=== PATIENT | female | born 1975 | race Caucasian/White ===

== ENCOUNTER 2016-11-05 19:19 | Emergency (ER) | payer SELFPAY ==
--- NOTE | 2016-11-05 20:44 | ER Document Report ---
HPI - HPI Patient complains to provider of: tightness in chest, SOB, dizzy, cough Onset: Other - monday Onset/Duration: Gradual, Persistent Pain Level: 3 Context: 40-year-old nonsmoking, non-hormone , no recent travel or immobilization, no hx cancer, female complaining of onset Monday morning at 11:00 while watching TV a scratchy and tightness in her chest. She also had a sensation of shortness of breath, sensation of not getting enough air in, and dizziness. 1220 she developed a dry cough. Monday evening at 7 PM she had an episode of diarrhea and the tightness in chest, shortness of breath, dizziness and feeling very antsy recurred. She was unable to sleep very well because she felt like she couldn't breathe. This morning her cough had increased with shortness of breath but no dizziness. At 4:00 when the symptoms persisted she felt like she needed to come to the emergency room due to the shortness of breath. She had several episodes of dizziness in the waiting room. No history of thyroid disorder. She does have anxiety but does not feel panicky or anxious now. Her apical pulse is 112 oxygenation 100% with respiratory rate 16-20. No leg pain, I did consult with Dr. Delgadillo at this time Consult with Dr. Delgadillo at this time and he recommends getting a d-dimer if that is negative we can use that to rule out PE. Pt does state that when she has felt this way in the past she was dx with bronchitis. Associated Symptoms: None Exacerbated by: Other - chest hurts more when she takes a deep breath Relieved by: Denies - ROS ROS below otherwise negative: Yes Systems Reviewed and Negative: Yes All other systems reviewed and negative - REPRODUCTIVE LMP: 4-17 - DERM Skin Color: Normal Past Medical History - General Information source: Patient - Social History Smoking Status: Never Smoker Frequency of alcohol use: None Drug Abuse: None Lives with: Spouse/Significant other Family History: Reviewed & Not Pertinent Patient has suicidal ideation: No Patient has homicidal ideation: No - Medical History Medical History: Negative Renal/ Medical History: Denies: Hx Peritoneal Dialysis Surgical Hx: Negative Vertical Provider Document - CONSTITUTIONAL Agree With Documented VS: Yes - INFECTION CONTROL TRAVEL OUTSIDE OF THE [place] IN LAST 30 DAYS: No - HEENT HEENT: Normal ENT Exam, Normocephalic, PERRLA. negative: Conjuctival Injection , Pharyngeal Erythema, Tympanic Membrane Red - NECK Neck: Supple. negative: Lymphadenopathy-Left, Lymphadenopathy-Right - RESPIRATORY Respiratory: Breath Sounds Normal, No Respiratory Distress O2 Sat by Pulse Oximetry: 100 - CARDIOVASCULAR Cardiovascular: Regular Rate, Regular Rhythm - GI/ABDOMEN Gastrointestinal: Abdomen Soft, Abdomen Non-Tender, No Organomegaly - BACK Back: Normal Inspection - MUSCULOSKELETAL/EXTREMETIES Musculoskeletal/Extremeties: MAEW, FROM, Non-Tender - NEURO Level of Consciousness: Awake, Alert, Appropriate - DERM Integumentary: Warm, Dry, No Rash Course - Re-evaluation Re-evalutation: 11/05/16 21:54 Microcytic anemia noted with tenderness to cytosis per week January cytosis ovalocytes and schistocytes slight target cells and slight teardrop cells. Patient has been anemic in the past but does not take iron at this time. She is chronically fatigued. She does not know how low her hemoglobin has been in the past. 11/05/16 22:08 Chest x-ray shows left upper lobe pneumonia. I consulted with Dilma Urrutia M.D. for treatment and disposition. Today's azithromycin, ferrous sulfate and referral to supervisor [facility] department. lungs clear. l - Vital Signs Vital signs: Temp Pulse Resp BP Pulse Ox 99.4 F 116 H 20 128/72 H 100 11/05/16 19:58 11/05/16 19:58 11/05/16 19:58 11/05/16 19:58 11/05/16 19:58 - Laboratory Result Diagrams: 11/05/16 21:10 11/05/16 21:10 Discharge - Discharge Clinical Impression: Chronic anemia Left upper lobe pneumonia Qualifiers: Pneumonia type: due to unspecified organism Qualified Code(s): J18.1 - Lobar pneumonia, unspecified organism Condition: Good Disposition: HOME, SELF-CARE Instructions: Pneumonia ([facility]), Azithromycin ([facility]), Inhaled Bronchodilators ([facility] ), Anemia ([facility]), Family Physicians / Practices Additional Instructions: see supervisor [facility] department related to your chronic anemia to er if symptoms worsen use the inhlater 2 puffs every 3-4 hours for the cough, use the aerochamber with it take over the counter ferrous sulfate 325mg three times per day stool softner daily referral to family practice doctor for further treatment Please complete the patient satisfaction survey if you get one, and return it.. If you do not receive a survey, then you can go to the [facility] website, [email or web address] and place your comments about your very good care. Thank you very much. It was a pleasure being your medical provider today. Prescriptions: Azithromycin [Zithromax] 250 mg PO DAILY #4 tablet Referrals: SYDNEY PHILLIPS MD [ACTIVE STAFF] - Follow up in 1 week
[2016-11-05] MEDS ORDERED: ALBUTEROL SULFATE 0.083% NEB 2.5 MG/3 ML AMPUL NEB ONE (21:00)
[2016-11-05] MEDS ORDERED: ACETAMINOPHEN 325 MG TABLET PO ONE (21:17)
[2016-11-05 21:20] LABS: ABSOLUTE EOSINOPHILS # (AUTO) 0.1 10^3/uL (0.0-0.6); ABSOLUTE LYMPHOCYTES (AUTO) 0.8 10^3/uL (0.5-4.7); ABSOLUTE MONOCYTES (AUTO) 0.9 10^3/uL (0.1-1.4); ABSOLUTE NEUT (AUTO) 6.1 10^3/uL (1.7-8.2); BASOPHILS % (AUTO) 0.6 % (0-2); EOSINOPHILS % (AUTO) 0.8 % (0-6); HEMATOCRIT 27.5 % (36.0-47.0); HEMOGLOBIN 8.2 g/dL (12.0-15.5); HGB HCT DIFFERENCE -2.9; LYMPHOCYTES % (AUTO) 9.9 % (13-45); MEAN CORPUSCULAR HEMOGLOBIN 17.1 pg (27.0-33.4); MEAN CORPUSCULAR HGB CONC 29.8 g/dL (32.0-36.0); MONOCYTES % (AUTO) 11.8 % (3-13); RED BLOOD COUNT 4.78 10^6/uL (3.72-5.28); RED CELL DISTRIBUTION WIDTH 17.7 % (11.5-14.0); SEGMENTED NEUTROPHILS % (AUTO) 76.9 % (42-78); WHITE BLOOD COUNT 7.9 10^3/uL (4.0-10.5)
[2016-11-05 21:33] LABS: ALANINE AMINOTRANSFERASE 30 U/L (9-52); ALBUMIN 4.3 g/dL (3.5-5.0); ALKALINE PHOSPHATASE 44 U/L (38-126); ANION GAP 16 (5-19); ASPARTATE AMINO TRANSFERASE 19 U/L (14-36); BILIRUBIN,DIRECT 0.1 mg/dL (0.0-0.4); BILIRUBIN,TOTAL 0.8 mg/dL (0.2-1.3); BLOOD UREA NITROGEN 5 mg/dL (7-20); CALCIUM 9.2 mg/dL (8.4-10.2); CARBON DIOXIDE 25 mmol/L (22-30); CHLORIDE 101 mmol/L (98-107); CREATININE RESULT 0.51 mg/dL (0.52-1.25); GLUCOSE 97 mg/dL (75-110); POTASSIUM 3.6 mmol/L (3.6-5.0); SODIUM 142.4 mmol/L (137-145); TOTAL PROTEIN 7.6 g/dL (6.3-8.2)
[2016-11-05 21:41] LABS: ANISOCYTOSIS 1+; HYPOCHROMASIA 2+; MICROCYTOSIS 4+; OVALOCYTES 1+; POIKILOCYTOSIS 1+; POLYCHROMASIA 1+; SCHISTOCYTES 1+; TARGET CELLS SLIGHT; TEAR DROP CELLS SLIGHT
[2016-11-05 21:43] LABS: MEAN CORPUSCULAR VOLUME 57 fl (80-97); TOXIC VACUOLATION PRESENT
[2016-11-05] MEDS ORDERED: AZITHROMYCIN 250 MG TABLET PO ONE (22:04)
[2016-11-05] MEDS ORDERED: ALBUTEROL SULFATE HFA (90 MCG/PUFF) 8 GM MDI (1 MDI/ER DISP) IH PRN ×2 (22:04→22:07)
[2016-11-05] MEDS ORDERED: FERROUS SULFATE 325 MG TABLET PO ONE (22:08)
[2016-11-05 22:33] VITALS: BP 132/85
[2016-11-07 16:23] LABS: PATH REVIEW PATHOLOGIST REVIEWED
== END 2016-11-05 22:37 | disposition home or self-care (01) ==
LOC: ER 19:19
DX: J18.1 Lobar pneumonia, unspecified organism (principal); D64.9 Anemia, unspecified; R07.9 Chest pain, unspecified; R06.02 Shortness of breath; R42 Dizziness and giddiness; R05 Cough
CPT/HCPCS: 94640; 99285; 36415; 84443; 85025; 80053; 85379; 71020; J3490

== ENCOUNTER 2017-07-13 14:14 | Emergency (ER) | payer SELFPAY ==
[2017-07-13] MEDS ORDERED: DEXAMETHASONE SOD PHOS INJ 10 MG/1 ML VIAL IM ONE (14:56)
--- NOTE | 2017-07-13 14:58 | ER Document Report ---
HPI - HPI Pain Level: 2 Notes: Patient is a 41-year-old female with no significant past medical history who presents the ED complaining of nasal congestion, sore throat, dry nonproductive cough, body ache 2 days. Patient states that she had called work today and does need a work note as well. She is still eating and drinking without any difficulties. She is urinating normally and having normal bowel movements. She denies any drug allergies, IV drug use, or smoking. No other concerns or complaints. Denies any headache, fever, neck pain, chest pain, palpitations, syncope, shortness of breath, wheeze, dyspnea, abdominal pain, nausea/vomiting/ diarrhea, urinary retention, dysuria, hematuria, loss of control of bowel or bladder, numbness/tingling, saddle anesthesia, muscle paralysis/weakness, or rash. Patient would like to be tested for strep and flu. - ROS Notes: REVIEW OF SYSTEMS: CONSTITUTIONAL : see hpi EENT: see hpi CARDIOVASCULAR: Denies chest pain. Denies palpitations or racing or irregular heart beat. Denies ankle edema. RESPIRATORY: see hpi. Denies shortness of breath, difficulty breathing, or wheezing. GASTROINTESTINAL: Denies abdominal pain or distention. Denies nausea, vomiting , or diarrhea. Denies blood in vomitus, stools, or per rectum. Denies black, tarry stools. Denies constipation. GENITOURINARY: Denies difficulty urinating, painful urination, burning, frequency, blood in urine, or discharge. MUSCULOSKELETAL: Denies back or neck pain or stiffness. Denies joint pain or swelling. SKIN: Denies rash, lesions or sores. NEUROLOGICAL: Denies dizziness or lightheadedness. Denies headache. Denies problems with gait or speech. Denies sensory loss, numbness, or tingling. Denies seizures. ALL OTHER SYSTEMS REVIEWED AND NEGATIVE. Dictation was performed using [employer] voice recognition software - EENT EENT: REPORTS: Sore Throat. DENIES: Ear Pain, Eye problems - NEURO Neurology: DENIES: Headache, Weakness, Vision blurred, Dizzinesss / Vertigo - CARDIOVASCULAR Cardiovascular: DENIES: Chest pain - RESPIRATORY Respiratory: REPORTS: Coughing. DENIES: Trouble Breathing - GASTROINTESTINAL Gastrointestinal: DENIES: Abdominal Pain, Black / Bloody Stools - URINARY Urinary: DENIES: Dysuria, Urgency, Frequency - MUSCULOSKELETAL Musculoskeletal: DENIES: Extremity pain Past Medical History - Social History Smoking Status: Never Smoker Chew tobacco use (# tins/day): No Frequency of alcohol use: Occasional Drug Abuse: None Family History: Reviewed & Not Pertinent Patient has suicidal ideation: No Patient has homicidal ideation: No Renal/ Medical History: Denies: Hx Peritoneal Dialysis Past Surgical History: Reports: Hx Section - x3 - Immunizations Hx Diphtheria, Pertussis, Tetanus Vaccination: Yes Vertical Provider Document - CONSTITUTIONAL Agree With Documented VS: Yes Notes: PHYSICAL EXAMINATION: GENERAL: Well-appearing, well-nourished and in no acute distress. A&Ox4 HEAD: Atraumatic, normocephalic. EYES: Pupils equal round and reactive to light, extraocular movements intact, sclera anicteric, conjunctiva are normal. ENT: EAC clear b/l. TM's intact b/l without erythema, fluid, or perforation. Nares patent and with clear discharge. oropharynx mild erythema without exudates. 2+ tonsilar hypertrophy b/l without exudate, +mild erythema. No palatine shift. Uvula midline. No tongue protrusion. No drooling, hoarseness , or airway compromise. Moist mucous membranes. No sinus tenderness. NECK: Normal range of motion, supple without lymphadenopathy. No rigidity/ meningismus. LUNGS: Breath sounds clear to auscultation bilaterally and equal. No wheezes rales or rhonchi. HEART: Regular rate and rhythm without murmurs, rubs, gallops. ABDOMEN: Soft, nontender, nondistended abdomen. No guarding, no rebound. No masses appreciated. Normal bowel sounds present. No CVA tenderness bilaterally. No hepatosplenomegaly. NEUROLOGICAL: Normal speech, normal gait. Normal sensory, motor exams PSYCH: Normal mood, normal affect. SKIN: Warm, Dry, normal turgor, no rashes or lesions noted. - INFECTION CONTROL TRAVEL OUTSIDE OF THE [place] IN LAST 30 DAYS: No Course - Re-evaluation Re-evalutation: 07/13/17 15:50 Patient is an afebrile, well-hydrated, 41-year-old female who presents to the ED with acute URI, suspect viral at this time. Vitals are stable. PE is otherwise unremarkable. Rapid influenza was negative. Rapid strep was negative with a culture pending. I did give her Decadron for the tonsillar hypertrophy. Low suspicion for any meningitis, sepsis, peritonsillar/ pharyngeal abscess, respiratory compromise, Shiv's, or other emergent systemic condition at this time. Patient is aware this condition can change from initial presentation and she needs to monitor symptoms closely. Conservative measures otherwise for symptoms. Recheck with your PCM in 3-5 days. Return to the ED with any worsening/concerning symptoms otherwise as reviewed in discharge. Patient is in agreement. Work note provided. Discharge - Discharge Clinical Impression: Acute URI Condition: Stable Disposition: HOME, SELF-CARE Instructions: Sore Throat ([facility]), Upper Respiratory Illness ([facility]) Additional Instructions: Maintain adequate fluid intake Take meds as directed Salt water gargles, throat sprays, mouthwash rinse, peroxide gargles tylenol/ibuprofen as needed over the counter cold medication as needed for symptoms F/u: with your PCM in 3-5 days for a recheck Consider consult with ENT for ongoing/worsening symptoms Return to the ED with any fever, worsening pain, chest pain, neck pain/stiffness , shortness of breath, cough, drooling, trouble swallowing/breathing, abdominal pain, n/v/d, rash, or worsening/concerning symptoms otherwise. Forms: Elevated Blood Pressure Referrals: [facility] [Provider Group] - Follow up as needed [facility] [Provider Group] - Follow up as needed
[2017-07-13 15:08] LABS: A TYPE INFLUENZA AG NEGATIVE (NEGATIVE); B INFLUENZA AG NEGATIVE (NEGATIVE)
[2017-07-13 15:59] VITALS: BP 129/88
== END 2017-07-13 15:59 | disposition home or self-care (01) ==
LOC: ER 14:14
DX: J06.9 Acute upper respiratory infection, unspecified (principal); R09.81 Nasal congestion; J02.9 Acute pharyngitis, unspecified; R05 Cough; M79.1 Myalgia
CPT/HCPCS: 99283; 96372; 87070; 87880; 87804; J1100

== ENCOUNTER 2018-07-07 05:05 | Emergency (ER) | payer SELFPAY ==
[2018-07-07] MEDS ORDERED: RINGERS SOLUTION,LACTATED 1,000 ML IV ONE (06:18)
--- NOTE | 2018-07-07 06:44 | RADIOLOGY REPORT (SQ) ---
EXAM DESCRIPTION: XR CHEST 2 VIEWS COMPLETED DATE/TME: 07/07/2018 06:16 CLINICAL HISTORY: 42 years Female, cough COMPARISON: None. NUMBER OF VIEWS/TECHNIQUE: 2, Frontal, Lateral FINDINGS: Adequate lung volume, clear parenchyma, normal cardiac silhouette, and intact bony thorax. IMPRESSION: No acute cardiopulmonary findings.
--- NOTE | 2018-07-07 06:47 | ER Document Report ---
ED General - General Chief Complaint: Nausea/Vomiting/Diarrhea Stated Complaint: NAUSEA Time Seen by Provider: 07/07/18 06:08 Mode of Arrival: Ambulatory TRAVEL OUTSIDE OF THE [place] IN LAST 30 DAYS: No - HPI Patient complains to provider of: nausea Onset: Other - 42-year-old female without significant past medical history the presents for evaluation of crampy abdominal pain as well as some chest discomfort with coughing. She noted that she had difficulty sleeping through the night because of it. She is been having loose bowel movements since that time as well as some associated nausea. She is not take anything to try and help with it, nothing is seem to make it better or worse. She is never had anything like this in the past other than some which she says episodes of diarrhea like everybody has. - Related Data Allergies/Adverse Reactions: No Known Allergies Allergy (Verified 07/13/17 14:15) Past Medical History - General Information source: Patient, Relative - Social History Smoking Status: Never Smoker Family History: Reviewed & Not Pertinent Patient has suicidal ideation: No Patient has homicidal ideation: No Renal/ Medical History: Denies: Hx Peritoneal Dialysis Past Surgical History: Reports: Hx Section - x3 - Immunizations Hx Diphtheria, Pertussis, Tetanus Vaccination: Yes Review of Systems - Review of Systems -: Yes All other systems reviewed and negative Physical Exam - Vital signs Vitals: Temp Pulse Resp BP Pulse Ox 98.6 F 90 16 140/94 H 98 07/07/18 05:05 07/07/18 05:05 07/07/18 05:05 07/07/18 05:05 07/07/18 05:05 Interpretation: Normal - General General appearance: Appears well, Alert - HEENT Head: Normocephalic, Atraumatic Eyes: Normal Pupils: PERRL - Respiratory Respiratory status: No respiratory distress Chest status: Nontender Breath sounds: Normal Chest palpation: Normal - Cardiovascular Rhythm: Regular Heart sounds: Normal auscultation Murmur: No - Abdominal Inspection: Normal Distension: No distension Bowel sounds: Normal Tenderness: Nontender Organomegaly: No organomegaly - Back Back: Normal, Nontender - Extremities General upper extremity: Normal inspection, Nontender, Normal color, Normal ROM, Normal temperature General lower extremity: Normal inspection, Nontender, Normal color, Normal ROM, Normal temperature, Normal weight bearing. No: Agus's sign - Neurological Neuro grossly intact: Yes Cognition: Normal Orientation: AAOx4 Check Coma Scale Eye Opening: Spontaneous Chad Coma Scale Verbal: Oriented Chad Coma Scale Motor: Obeys Commands Chad Coma Scale Total: 15 Speech: Normal Motor strength normal: LUE, RUE, LLE, RLE Sensory: Normal - Psychological Associated symptoms: Normal affect, Normal mood - Skin Skin Temperature: Warm Skin Moisture: Dry Skin Color: Normal Course - Re-evaluation Re-evalutation: 42-year-old female who presents for evaluation of nondescript abdominal cramping and some cough. She notes that the cough is what concerned her this morning prompting her to come to the emergency room. On examination she is well-appearing, she has a benign abdominal examination, will obtain an influenza swab and also will obtain a 2 view of her chest. We will defer blood workup at this time. Discussed with the patient her x-ray findings, the negative flu test. Currently she is well-appearing able to tolerate p.o. says that she is feeling much better. Current plan will be for this patient undergo discharge with a prescription for antiemetic. She will be given return precautions specifically related to her chest pain as well as abdominal pain. She is been given a brief prescription for antinausea medication. - Vital Signs Vital signs: Temp Pulse Resp BP Pulse Ox 98.1 F 79 16 132/75 H 100 07/07/18 07:36 07/07/18 07:36 07/07/18 07:36 07/07/18 07:36 07/07/18 07:36 Discharge - Discharge Clinical Impression: Nausea, Flu-like symptoms Abdominal pain Qualifiers: Abdominal location: unspecified location Qualified Code(s): R10.9 - Unspecified abdominal pain Condition: Good Disposition: HOME, SELF-CARE Instructions: Abdominal Pain ([facility]), Antinausea Medication ([facility]), Diarrhea, Nonspecific ([facility]), Intravenous (IV) Fluids ([facility]) Additional Instructions: You were seen today in the emergency department for your abdominal pain chest pain nausea and diarrhea. You had evaluation including a physical exam, a flu test a chest x-ray as well as medicine for pain and nausea. You do not have the flu. Your chest x-ray was clear. There is no pneumonia that we can see on your chest x-ray. Use the nausea medicine prescribed to you as well as [id number] cough and flu medicine as needed. You should use Tylenol 1 g every 6 hours as needed for fever and body aches. You should return to the emergency room in case of any worsening fevers, chest pain, inability to breathe. Prescriptions: Ondansetron [Zofran Odt 4 mg Tablet] 1 - 2 tab PO Q6H PRN #15 tab.rapdis PRN Reason: For Nausea/Vomiting Forms: Return to Work Referrals: [facility] [Outside] - Follow up in 1 week
[2018-07-07 06:56] LABS: A TYPE INFLUENZA AG NEGATIVE (NEGATIVE); B INFLUENZA AG NEGATIVE (NEGATIVE)
[2018-07-07] MEDS ORDERED: ONDANSETRON HCL INJ/PF 4 MG/2 ML SDV IV ONE (06:57)
[2018-07-07] MEDS ORDERED: KETOROLAC TROMETHAMINE INJ/PF 30 MG/1 ML SDV IV ONE (06:57)
[2018-07-07 07:43] VITALS: BP 132/75
== END 2018-07-07 07:37 | disposition home or self-care (01) ==
LOC: ER 05:05
DX: R11.2 Nausea with vomiting, unspecified (principal); R10.9 Unspecified abdominal pain; R05 Cough; R19.7 Diarrhea, unspecified
CPT/HCPCS: 99284; 96374; 96375; 87804; 71046; J1885; J2405; J7120